=== PATIENT | female | born 1995 | race Caucasian/White ===

== ENCOUNTER → 2016-11-22 | Outpatient (CLI) | payer MEDICARE, OTHER | LOC: US 10:00 | DX: R10.11 Right upper quadrant pain (principal); R10.819 Abdominal tenderness, unspecified site; R93.5 Abnormal findings on diagnostic imaging of other abdominal regions, including retroperitoneum | CPT/HCPCS: 76705 ==

== ENCOUNTER → 2016-11-30 | Outpatient (CLI) | payer MEDICARE, OTHER | LOC: NM 13:00 | DX: R10.11 Right upper quadrant pain (principal); R11.0 Nausea; R93.2 Abnormal findings on diagnostic imaging of liver and biliary tract | CPT/HCPCS: 78226; A9537 ==

== ENCOUNTER → 2021-11-08 | Outpatient (CLI) | payer MEDICARE, OTHER | LOC: LAB 13:53 | DX: N13.729 Vesicoureteral-reflux with reflux nephropathy without hydroureter, unspecified (principal) | CPT/HCPCS: 81001; 87086 ==

== ENCOUNTER → 2021-12-25 | Outpatient (CLI) | payer MEDICARE, OTHER | LOC: KOH-I 13:04 | DX: R05.9 Cough, unspecified (principal) | CPT/HCPCS: 71046 ==

== ENCOUNTER → 2022-03-21 | Outpatient (CLI) | payer MEDICARE, OTHER ==
[2022-03-22 10:14] LABS: CREATININE, URINE 65.5 mg/dL (Not Estab.)
== END ==
LOC: LAB 12:00
PROVIDERS: Internal Medicine Nephrology
DX: N18.9 Chronic kidney disease, unspecified (principal)
CPT/HCPCS: 36415; 80053; 81001; 82043; 82570; 84156